=== PATIENT | male | born 1975 | race Two or more races ===

== ENCOUNTER 2017-09-14 08:36 | Emergency (ER) | payer OTHER ==
[~2017-09-14] VITALS: Ht 172.7 cm; Wt 108.1 kg
[2017-09-14 08:38] VITALS: BP 144/95
[2017-09-14] MEDS ORDERED: KETOROLAC 30 MG/1 ML IM ONE (09:30)
[2017-09-14] MEDS ORDERED: KETOROLAC 30 MG/1 ML ONE (09:56)
== END 2017-09-14 10:44 | disposition home or self-care (01) ==
LOC: ED 10:25
DX: S83.92XA Sprain of unspecified site of left knee, initial encounter (principal); M79.605 Pain in left leg; X58.XXXA Exposure to other specified factors, initial encounter; Y93.89 Activity, other specified; Y92.89 Other specified places as the place of occurrence of the external cause; Y99.9 Unspecified external cause status
CPT/HCPCS: 29505; 73564; 93971; 96372; 99284; J1885

== ENCOUNTER 2018-08-17 01:29 | Emergency (ER) | payer MEDICAID ==
[~2018-08-17] VITALS: Ht 172.7 cm; Wt 112.6 kg
[2018-08-17] MEDS ORDERED: KETOROLAC 30 MG/1 ML IM ONE (02:00)
[2018-08-17] MEDS ORDERED: KETOROLAC 30 MG/1 ML ONE (02:02)
[2018-08-17 03:30] VITALS: BP 132/97
== END 2018-08-17 03:49 | disposition home or self-care (01) ==
LOC: ED 03:48
DX: S39.012A Strain of muscle, fascia and tendon of lower back, initial encounter (principal); S39.013A Strain of muscle, fascia and tendon of pelvis, initial encounter; S76.012A Strain of muscle, fascia and tendon of left hip, initial encounter; X58.XXXA Exposure to other specified factors, initial encounter; Y93.89 Activity, other specified; Y92.89 Other specified places as the place of occurrence of the external cause; Y99.8 Other external cause status
CPT/HCPCS: 72110; 73502; 96372; 99283; J1885

== ENCOUNTER 2019-01-29 21:27 | Emergency (ER) | payer MEDICAID, OTHER ==
[~2019-01-29] VITALS: Ht 172.7 cm; Wt 114.5 kg
[2019-01-29 21:31] VITALS: BP 167/95
== END 2019-01-29 22:38 | disposition home or self-care (01) ==
LOC: ED 22:30
DX: S83.421A Sprain of lateral collateral ligament of right knee, initial encounter (principal); X50.1XXA Overexertion from prolonged static or awkward postures, initial encounter; Y93.61 Activity, american tackle football; Y92.321 Football field as the place of occurrence of the external cause; Y99.8 Other external cause status
CPT/HCPCS: 29505; 99283

== ENCOUNTER 2020-06-02 13:44 | Emergency (ER) | payer BC, OTHER ==
[~2020-06-02] VITALS: Ht 172.7 cm; Wt 113.0 kg
[2020-06-02 13:48] VITALS: BP 161/94
--- NOTE | 2020-06-02 14:39 | NUR ---
TASK RN: DC EDUCATION PROVIDED, PT DEMONSTRATES UNDERSTANDING. PRIMARY RN OBTAINING SLING.
== END 2020-06-02 15:34 | disposition home or self-care (01) ==
LOC: ED 15:00
DX: M65.841 Other synovitis and tenosynovitis, right hand (principal); F17.200 Nicotine dependence, unspecified, uncomplicated
CPT/HCPCS: 99283

== ENCOUNTER 2020-08-13 11:31 | Emergency (ER) | payer BC ==
[~2020-08-13] VITALS: Ht 172.7 cm; Wt 113.4 kg
[2020-08-13 11:32] VITALS: BP 150/104
== END 2020-08-13 12:13 ==
LOC: ED 11:58
DX: K02.9 Dental caries, unspecified (principal); K08.89 Other specified disorders of teeth and supporting structures
CPT/HCPCS: 99283